=== PATIENT | female | born 1955 | race Caucasian/White ===

== ENCOUNTER 2021-12-09 21:06 | Emergency (ER) | payer MEDICARE, MEDICAID, SELFPAY ==
--- NOTE | ~2021-12-09 | XR_ITS ---
EXAMINATION: XR CHEST CLINICAL INFORMATION: Abdominal pain and vomiting COMPARISON: None TECHNIQUE: Frontal view of the chest was obtained. FINDINGS: Lungs are well expanded and clear. No pulmonary mass, pleural effusion or pneumothorax. Cardiac silhouette has normal size and contour. There is multilevel osteophyte formation of the visualized spine. The visualized upper abdomen is grossly normal. No pneumoperitoneum. XR/XR chest 1V IMPRESSION: No acute pulmonary disease.
[2021-12-09 21:23] VITALS: BP 122/70; BP 145/79; PULSE 105; PULSE 110; RESP 16; TEMP 36.4; O2SAT 100; O2SAT 98; BMI 42.0
--- NOTE | 2021-12-09 21:37 | ECG_ITS ---
Test Reason : abdominal pain Blood Pressure : / mmHG Vent. Rate : 073 BPM Atrial Rate : 075 BPM P-R Int : 198 ms QRS Dur : 142 ms QT Int : 442 ms P-R-T Axes : 044 026 013 degrees QTc Int : 486 ms Normal sinus rhythm with sinus arrhythmia Right bundle branch block Abnormal ECG When compared with ECG of 29-SEP-2007 16:09, No significant change was found Referred By: Ninfa De Los Santos Electronically Signed By:Natalio Mcmillan
--- NOTE | 2021-12-09 21:37 | ED.ABDPAIN ---
HPI - Abdominal Pain General Chief Complaint: Abdominal Pain Stated Complaint: lower back radiating to the abd & N/V Source: patient and EMS Mode of arrival: EMS Limitations: no limitations History of Present Illness HPI narrative: 66-year-old female presents via EMS for nausea, vomiting, diarrhea and left-sided flank and abdominal pain. Patient stated that she has been worked up in the emergency room and urgent care every day for the past 5 days. MD elicited complaint: abdominal pain and flank pain Pertinent past history: kidney stones Onset (ago): day(s) (5) Pain Consistency: intermittent Location: LLQ and L flank Severity: moderate Pain scale (0-10): 7 Quality: stabbing and sharp Migration to: no migration Exacerbating factors: bowel movement, vomiting and movement Relieving factors: nothing Associated symptoms: nausea, vomiting, diarrhea, fever and chills Related Data Allergies Allergy/AdvReac Type Severity Reaction Status Date / Time No Known Allergies Allergy Verified 12/09/21 21:37 Review of Systems Review of Systems Constitutional: No Weight loss, positive Fever, positive Chills, No Night Sweats, No Fatigue, No Malaise ENT/Mouth: No Hearing loss, No Ear Pain, No Nasal Congestion, No Sinus Pain, No Hoarseness, No sore throat, No Rhinorrhea, No Swallowing Difficulty Eyes: No Eye Pain, No Swelling, No Redness, No Foreign Body, No Discharge, No Vision Changes Cardiovascular: No Chest Pain, No SOB, No Dyspnea on Exertion, No Orthopnea, No Edema, No Palpitations Respiratory: No Cough, No Sputum, No Wheezing, No Smoke Exposure, No Dyspnea Gastrointestinal: Positive Nausea, Positive Vomiting, positive Diarrhea, positive abdominal Pain, No Hematochezia, No Melena Genitourinary: no irregular bleeding, No Dysuria, No Urinary Frequency, No Hematuria, No Urinary Incontinence, No Urgency, positive Flank Pain, No Urinary Flow Changes, No Hesitancy Musculoskeletal: No joint pain, No Myalgias, No Joint Swelling Skin: No Skin Lesions, No rash Neuro: No Weakness, No Numbness, No Paresthesias, No Loss of Consciousness, No Dizziness, No Headache Psych: No Anxiety/Panic, No Depression, No SI/HI/AH/VH, No Social Issues Heme/Lymph: No Bruising, No Bleeding,No Lymphadenopathy Endocrine: No Polyuria, No Polydipsia, No Temperature Intolerance Yes all other systems are reviewed and are negative [facility] Past Medical History Attestation statement: The following information was validated with the patient. Source: old records reviewed Social History Social History Alcohol intake: never Patient Tobacco Use Status: Never used Tobacco Use of substances other than those prescribed or required for medical reasons: No Advance Directives: No Advance Directives Information Provided: No Physical Exam ED Vital Signs: Vital Signs - 24 hr 12/09/21 21:23 12/09/21 23:12 12/10/21 01:49 Temperature 97.6 F Pulse Rate 105 H 68 89 Respiratory Rate 16 18 16 Blood Pressure 145/79 H 144/66 H 127/55 L Pulse Oximetry 98 99 97 BMI result Body Mass Index 42.0 Appearance: Alert. Oriented X3. No acute distress. Eyes: Pupils equal, round and reactive to light. ENT: Pharynx normal. Neck: Normal inspection. Neck supple. CVS: Normal heart rate and rhythm. Pulses normal. Respiratory: No respiratory distress. Breath sounds normal. Abdomen: Soft and nontender. Skin: Skin warm and dry. Normal skin color. Normal skin turgor. Extremities: No lower extremity edema. Moves all extremities. Neuro: No motor deficit. No sensory deficit. Cranial nerves 2-12 intact. Course Course Course Narrative: 66-year-old female presents abdominal kidney and nausea, vomiting, diarrhea, fevers and chills. States that she has at facilities 5 days in a row for this left-sided flank pain. States that she has been [facility], [facility], and urgent care, has had CT scans with negative findings with the exception of a kidney stone and UTI. At the time of my assessment, patient is calm, polite, appears to be in no distress, has feces on her hands and legs. EMS report states that she did have a bowel movement on transit to the emergency department. Patient reports that she did take a bunch of laxatives because she felt constipated. She does have a history of chronic hypokalemia, takes 20 mEq of potassium twice daily. Will order labs to rule out sepsis, however I feel that this is unlikely as patient is afebrile, appears nontoxic, while tachycardic she did have to exert herself getting from the EMS stretcher to the ED stretcher. 21:50 [facility] records 12/08/2021. It was noted that patient had hypokalemia, creatinine of 1 3, renal insufficiency and discharged home. 22:30 case Management social Service consult. Patient that she has been to 5 different facilities, on Wednesday she was at [facility] and diagnosed with UTI and is on Keflex on Wednesday she was at [facility] and left before treatment because it was too busy. Wednesday she went to [facility] had a negative ultrasound. Went to urgent care on Wednesday and noted to have hypokalemia and a 1.3 creatinine. She was referred to [facility] emergency where she had a negative workup. Patient states that she is able to go home and care for herself once workup is complete. 23:10 WBC 13.2, K 2.7 order for 40 mEq of potassium at this time. BUN 18, bili 1.5 without elevation of AST ALT and lipase. Troponin 3.8. COVID and influenza are negative. 00:39 2nd dose of potassium 4 ordered. Urinalysis is pending. 01:06 urinalysis is negative. Does have a small amount of heme consistent with her prior history of kidney stones. Plan of care is to discharge to home. Patient verbalized understanding of and agrees to plan of care to discharge home. Verbalized understanding of signs and symptoms indicating need for emergent intervention MDM - Abdominal Pain MDM Narrative Medical decision making narrative: Sepsis, UTI Differential Diagnosis Differential diagnosis: Likely abdominal pain, calculus of kidney and renal colic Medical Records Attestation: I reviewed the patient's medical records. Lab Data Attestation: I reviewed the patient's lab results. Result diagrams: 12/09/21 22:39 12/09/21 22:39 Labs: Lab Results 12/09/21 12/09/21 12/09/21 Range/Units 22:39 22:39 22:39 WBC 13.2 H (4.8-10.8) X10*3/uL RBC 5.51 H (4.20-5.50) X10*6/uL Hgb 15.5 (12.0-16.0) g/dl Hct 44.8 (37.0-47.0) % MCV 81.3 (80.0-98.0) fL MCH 28.1 (27.0-33.0) pg MCHC 34.6 (31.0-35.0) g/dl RDW 13.9 (11.0-16.0) % Plt Count 282 (160-400) X10*3/uL MPV 9.9 (9.4-12.3) fL Immature Gran % (Auto) 0.4 (0.0-0.4) % Neut % (Auto) 71.9 (45-73) % Lymph % (Auto) 15.5 L (20-40) % [place] % (Auto) 10.8 (2-11) % Eos % (Auto) 0.9 (0-4) % Baso % (Auto) 0.5 (0-2) % Lymph # (Auto) 2.1 (1.2-4.9) X10*3/uL [place] # (Auto) 1.4 H (0.1-1.2) X10*3/uL Eos # (Auto) 0.1 (0.0-0.4) X10*3/uL Baso # (Auto) 0.1 (0.0-0.2) X10*3/uL Abs Immat Gran (auto) 0.05 H (0.00-0.03) X10*3/uL Absolute Neuts (auto) 9.5 H (2.0-8.3) x10*3/uL Absolute Nucleated RBC 0.000 (0.0-0.012) X10*3/uL Nucleated RBC % (auto) 0.0 (0.0-0.2) /100WBC APTT 26.9 (24.1-38.0) SEC Sodium 139 (135-145) mmol/L Potassium 2.7 L (3.3-5.1) mmol/L Chloride 93 L (96-108) mmol/L Carbon Dioxide 29 (22-29) mmol/L Anion Gap 20 (12-20) BUN 18 H (9-16) mg/dL Creatinine 1.17 (0.5-1.4) mg/dL Estim Creat Clear Calc 52.9 Estimated GFR 46 Random Glucose 146 H (60-115) mg/dL Lactic Acid (0.5-2.0) mmol/L Calcium 9.9 (8.4-10.2) mg/dL Magnesium 2.0 (1.6-2.6) mg/dL Total Bilirubin 1.5 H (0.0-1.0) mg/dL Direct Bilirubin 0.6 H (0.0-0.5) mg/dL AST 25 (5-31) U/L ALT 19 (0-31) U/L Alkaline Phosphatase 68 (39-117) U/L Troponin I High Sens (<3.5-17.0) ng/L Total Protein 7.3 (6.5-8.0) g/dL Albumin 4.3 (3.5-5.0) g/dL Lipase 37 (8-78) U/L Urine Color Urine Appearance Urine pH (5.0-8.0) Ur Specific [place] (1.005-1.025) Urine Protein (NEG-TRACE) MG/DL Urine Glucose (UA) (NEG) MG/DL Urine Ketones (NEG) MG/DL Urine Blood (NEG) Urine Nitrite (NEG) Ur Leukocyte Esterase (NEG) Urine RBC (0) /HPF Urine WBC (0-4) /HPF Ur Squamous Epith Cells /LPF Urine Bacteria /LPF Waxy Casts /LPF Urine Mucus /LPF Influenza Type A (PCR) (Negative) Influenza Type B (PCR) (Negative) RSV RNA Qual (PCR) (Negative) SARS-CoV-2 RNA (RT-PCR) (Negative) 12/09/21 12/09/21 12/09/21 Range/Units 22:39 22:39 22:39 WBC (4.8-10.8) X10*3/uL RBC (4.20-5.50) X10*6/uL Hgb (12.0-16.0) g/dl Hct (37.0-47.0) % MCV (80.0-98.0) fL MCH (27.0-33.0) pg MCHC (31.0-35.0) g/dl RDW (11.0-16.0) % Plt Count (160-400) X10*3/uL MPV (9.4-12.3) fL Immature Gran % (Auto) (0.0-0.4) % Neut % (Auto) (45-73) % Lymph % (Auto) (20-40) % [place] % (Auto) (2-11) % Eos % (Auto) (0-4) % Baso % (Auto) (0-2) % Lymph # (Auto) (1.2-4.9) X10*3/uL [place] # (Auto) (0.1-1.2) X10*3/uL Eos # (Auto) (0.0-0.4) X10*3/uL Baso # (Auto) (0.0-0.2) X10*3/uL Abs Immat Gran (auto) (0.00-0.03) X10*3/uL Absolute Neuts (auto) (2.0-8.3) x10*3/uL Absolute Nucleated RBC (0.0-0.012) X10*3/uL Nucleated RBC % (auto) (0.0-0.2) /100WBC APTT (24.1-38.0) SEC Sodium (135-145) mmol/L Potassium (3.3-5.1) mmol/L Chloride (96-108) mmol/L Carbon Dioxide (22-29) mmol/L Anion Gap (12-20) BUN (9-16) mg/dL Creatinine (0.5-1.4) mg/dL Estim Creat Clear Calc Estimated GFR Random Glucose (60-115) mg/dL Lactic Acid 1.7 (0.5-2.0) mmol/L Calcium (8.4-10.2) mg/dL Magnesium (1.6-2.6) mg/dL Total Bilirubin (0.0-1.0) mg/dL Direct Bilirubin (0.0-0.5) mg/dL AST (5-31) U/L ALT (0-31) U/L Alkaline Phosphatase (39-117) U/L Troponin I High Sens 3.8 (<3.5-17.0) ng/L Total Protein (6.5-8.0) g/dL Albumin (3.5-5.0) g/dL Lipase (8-78) U/L Urine Color Urine Appearance Urine pH (5.0-8.0) Ur Specific [place] (1.005-1.025) Urine Protein (NEG-TRACE) MG/DL Urine Glucose (UA) (NEG) MG/DL Urine Ketones (NEG) MG/DL Urine Blood (NEG) Urine Nitrite (NEG) Ur Leukocyte Esterase (NEG) Urine RBC (0) /HPF Urine WBC (0-4) /HPF Ur Squamous Epith Cells /LPF Urine Bacteria /LPF Waxy Casts /LPF Urine Mucus /LPF Influenza Type A (PCR) NEGATIVE (Negative) Influenza Type B (PCR) NEGATIVE (Negative) RSV RNA Qual (PCR) NEGATIVE (Negative) SARS-CoV-2 RNA (RT-PCR) NEGATIVE (Negative) 12/10/21 Range/Units 00:48 WBC (4.8-10.8) X10*3/uL RBC (4.20-5.50) X10*6/uL Hgb (12.0-16.0) g/dl Hct (37.0-47.0) % MCV (80.0-98.0) fL MCH (27.0-33.0) pg MCHC (31.0-35.0) g/dl RDW (11.0-16.0) % Plt Count (160-400) X10*3/uL MPV (9.4-12.3) fL Immature Gran % (Auto) (0.0-0.4) % Neut % (Auto) (45-73) % Lymph % (Auto) (20-40) % [place] % (Auto) (2-11) % Eos % (Auto) (0-4) % Baso % (Auto) (0-2) % Lymph # (Auto) (1.2-4.9) X10*3/uL [place] # (Auto) (0.1-1.2) X10*3/uL Eos # (Auto) (0.0-0.4) X10*3/uL Baso # (Auto) (0.0-0.2) X10*3/uL Abs Immat Gran (auto) (0.00-0.03) X10*3/uL Absolute Neuts (auto) (2.0-8.3) x10*3/uL Absolute Nucleated RBC (0.0-0.012) X10*3/uL Nucleated RBC % (auto) (0.0-0.2) /100WBC APTT (24.1-38.0) SEC Sodium (135-145) mmol/L Potassium (3.3-5.1) mmol/L Chloride (96-108) mmol/L Carbon Dioxide (22-29) mmol/L Anion Gap (12-20) BUN (9-16) mg/dL Creatinine (0.5-1.4) mg/dL Estim Creat Clear Calc Estimated GFR Random Glucose (60-115) mg/dL Lactic Acid (0.5-2.0) mmol/L Calcium (8.4-10.2) mg/dL Magnesium (1.6-2.6) mg/dL Total Bilirubin (0.0-1.0) mg/dL Direct Bilirubin (0.0-0.5) mg/dL AST (5-31) U/L ALT (0-31) U/L Alkaline Phosphatase (39-117) U/L Troponin I High Sens (<3.5-17.0) ng/L Total Protein (6.5-8.0) g/dL Albumin (3.5-5.0) g/dL Lipase (8-78) U/L Urine Color YELLOW Urine Appearance CLOUDY Urine pH 6.0 (5.0-8.0) Ur Specific [place] 1.020 (1.005-1.025) Urine Protein NEG (NEG-TRACE) MG/DL Urine Glucose (UA) NEG (NEG) MG/DL Urine Ketones 15 (NEG) MG/DL Urine Blood 1+ H (NEG) Urine Nitrite NEG (NEG) Ur Leukocyte Esterase NEG (NEG) Urine RBC 0-2 (0) /HPF Urine WBC 0 (0-4) /HPF Ur Squamous Epith Cells 2+ /LPF Urine Bacteria NONE /LPF Waxy Casts 0-2 /LPF Urine Mucus 3+ /LPF Influenza Type A (PCR) (Negative) Influenza Type B (PCR) (Negative) RSV RNA Qual (PCR) (Negative) SARS-CoV-2 RNA (RT-PCR) (Negative) Imaging Data Chest x-ray: Attestation: I personally reviewed and interpreted this imaging study as follows: Radiologist's impression: EXAMINATION: XR CHEST CLINICAL INFORMATION: Abdominal pain and vomiting COMPARISON: None TECHNIQUE: Frontal view of the chest was obtained. FINDINGS: Lungs are well expanded and clear. No pulmonary mass, pleural effusion or pneumothorax. Cardiac silhouette has normal size and contour. There is multilevel osteophyte formation of the visualized spine. The visualized upper abdomen is grossly normal. No pneumoperitoneum. XR/XR chest 1V IMPRESSION: No acute pulmonary disease. ECG Data Attestation: I personally reviewed and interpreted this ECG as follows: ECG interpretation date: 12/09/21 ECG interpretation time: 22:14 Prior ECG tracings: available for review Interpretation: Vent. rate 73 BPM TX interval 198 ms QRS duration 142 ms QT/QTc 442/486 ms P-R-T axes 44 26 13 Normal sinus rhythm with sinus arrhythmia Right bundle branch block Abnormal ECG When compared with ECG of 29-SEP-2007 16:09, No significant change was found Discharge Plan Discharge Clinical Impression: Abdominal pain Patient Disposition: Home, Self-Care Instructions: Abdominal Pain (ED) Additional Instructions: You were evaluated for abdominal pain nausea vomiting and loose stools. Her loose stools are secondary to your laxatives that you took earlier today. Workup was negative with the exception of a low potassium of 2.7 which we gave you 2 doses of potassium 40 mEq. Continue taking medications as prescribed at home. Urinalysis is negative Thank you for choosing this emergency department for evaluation. Please follow-up with primary care physician as needed. Return to the emergency department for any new, concerning, or worsening symptoms. Referrals: Ni Ly PA [Primary Care Provider] -
--- NOTE | 2021-12-09 22:27 | MHC.CM.ED ---
CM met with patient with medical work-up pending at request of Ninfa ORTEGA. Pt lives alone. Uses no DMR/services. Vax/boosted/[employer]. Drives. Has HCP at home. Copy requested. HCP/daughter Ni Gonzalez ([phone]). Pt has HX of kidney stones and back pain. Pt currently was diagnosed with UTI at [facility] on Wednesday and given Keflex. Was at [facility] for pain on Wed, but left without treatment, ED wait too long. Returned to [place] on Wednesday, left flank/back pain. Has kidney ultrasound, no kidney stones. Went to [facility] urgent care on Wednesday and had blood work- unsure of results. Came to ED today with left flank, back pain and loose stool. States she used a suppository and an enema. Unsure of last BM before today. If medical work up negative, pt states she will go home and will probably call an Uber. Above reported to Ninfa ORTEGA.
[2021-12-09 22:46] LABS: MANUAL DIFF FLAG NO
[2021-12-09 22:47] LABS: Basophils Absolute Auto 0.1 X10*3/uL (0.0-0.2); Basophils Percent Auto 0.5 % (0-2); Eosinophils Absolute Auto 0.1 X10*3/uL (0.0-0.4); Eosinophils Percent Auto 0.9 % (0-4); Hematocrit 44.8 % (37.0-47.0); Hemoglobin 15.5 g/dl (12.0-16.0); Imm Gran Abs Auto 0.05 X10*3/uL (0.00-0.03); Imm Gran Pct Auto 0.4 % (0.0-0.4); Lymphocytes Absolute Auto 2.1 X10*3/uL (1.2-4.9); Lymphocytes Percent Auto 15.5 % (20-40); Mean Corpuscular HGB Conc 34.6 g/dl (31.0-35.0); Mean Corpuscular Hemoglobin 28.1 pg (27.0-33.0); Mean Corpuscular Volume 81.3 fL (80.0-98.0); Mean Platelet Volume 9.9 fL (9.4-12.3); Monocytes Absolute Auto 1.4 X10*3/uL (0.1-1.2); Monocytes Percent Auto 10.8 % (2-11); Neutrophils Absolute Auto 9.5 x10*3/uL (2.0-8.3); Neutrophils Percent Auto 71.9 % (45-73); Platelet Count 282 X10*3/uL (160-400); Red Blood Count 5.51 X10*6/uL (4.20-5.50); Red Cell Distribution Width 13.9 % (11.0-16.0); White Blood Count 13.2 X10*3/uL (4.8-10.8)
[2021-12-09 22:58] LABS: Partial Thromboplastin Time 26.9 SEC (24.1-38.0)
[2021-12-09 23:02] LABS: Lactic Acid 1.7 mmol/L (0.5-2.0)
[2021-12-09 23:06] LABS: Alanine Aminotransferase 19 U/L (0-31); Albumin Level 4.3 g/dL (3.5-5.0); Alkaline Phosphatase 68 U/L (39-117); Anion Gap 20 (12-20); Aspartate Amino Transferase 25 U/L (5-31); Bilirubin Direct 0.6 mg/dL (0.0-0.5); Bilirubin Total 1.5 mg/dL (0.0-1.0); Blood Urea Nitrogen 18 mg/dL (9-16); Calcium 9.9 mg/dL (8.4-10.2); Carbon Dioxide 29 mmol/L (22-29); Chloride 93 mmol/L (96-108); Creatinine Clr Calc Pharmacy 52.9; Estimated Glomerular Filt Rate 46; Glucose Random 146 mg/dL (60-115); Lipase 37 U/L (8-78); Potassium 2.7 mmol/L (3.3-5.1); Sodium 139 mmol/L (135-145); Total Protein 7.3 g/dL (6.5-8.0)
[2021-12-09 23:07] LABS: Troponin-I High Sensitivity 3.8 ng/L (<3.5-17.0)
[2021-12-09 23:12] VITALS: BP 144/66; PULSE 68; RESP 18; O2SAT 99
[2021-12-09 23:23] LABS: Influenza A PCR NEGATIVE (Negative); Influenza B PCR NEGATIVE (Negative); Resp Syncy Virus RNA Qual PCR NEGATIVE (Negative); SARS COV2 PCR INHOUSE NEGATIVE (Negative)
[2021-12-10 01:02] LABS: Appearance Urine CLOUDY; Color Urine YELLOW; Glucose Urine UA NEG (NEG); Leukocyte Esterase Urine NEG (NEG); Nitrite Urine NEG (NEG); UACC Culture Trigger NO; Urine Blood 1+ (NEG); Urine Ketones 15 MG/DL (NEG); Urine Protein NEG (NEG-TRACE)
[2021-12-10 01:22] LABS: Mucus Urine 3+ /LPF; RBC Urine 0-2 /HPF (0); Squamous Epithelial Cell Urine 2+ /LPF; WBC Urine 0 /HPF (0-4); Waxy Casts Urine 0-2 /LPF
[2021-12-10 01:49] VITALS: BP 127/55; PULSE 89; RESP 16; O2SAT 97
[2021-12-10] MEDS: Potassium Chloride Packet 20 MEQ PACKET 40 MEQ PO ×2 (01:57→01:58)
[2021-12-10 02:03] VITALS: RESP 16
--- NOTE | 2021-12-10 02:04 | PC.NURSE ---
pt a&o, no sob or chest pain, reviewed discharge instructions and medications. pt verbalized understanding. pt discharges to [facility] and will be calling for a ride home.
== END 2021-12-10 02:11 | disposition home or self-care (01) ==
PROVIDERS: Nurse Practitioner Family; Emergency Provider Internal Medicine; PCP Physician Assistant Medical
DX: R10.9 Unspecified abdominal pain (principal); R11.2 Nausea with vomiting, unspecified; Z20.822 Contact with and (suspected) exposure to COVID-19; R00.0 Tachycardia, unspecified
CPT/HCPCS: 0241U; 36415; 71045; 80048; 80076; 81001; 81003; 83605; 83690; 83735; 84484; 85025; 85730; 87040; 93005; 99284; 99285